=== PATIENT | male | born 1950 | race Caucasian/White ===

== ENCOUNTER 2019-06-12 08:30 | Outpatient (RCR) | payer MEDICARE, SELFPAY ==
[2019-05-27 10:34] VITALS: BP 124/78; BP 128/78; RESP 12; O2SAT 95; BMI 34.0
--- NOTE | 2019-05-27 12:52 | PR.IEVALNOTE ---
Current Diagnoses Other disorders of lung (05/27/19) Visit Care Team Role Provider Type Ganesh Mcarthur MD Primary Care Provider Physician Specialty: Internal Medicine Address: [address] [place] [address], [id number] Email: [email or web address] Josep Montejo MD Attending Provider Non-Staff Family Provider Referring Provider Specialty: Pulmonology Address: [address] [place] [address], [id number] Email: Pulmonary Rehab Initial Evaluation HI Pulmonary Rehab Inital Assessment Start: 05/27/19 10:33 Freq: Status: Active Protocol: Document 05/27/19 10:34 TWAN (Rec: 05/27/19 10:55 TWAN [id number]) HI Exercise Assessment Dx: Lung Cancer Comment Left upper lobe resection Restrictive lung disease Primary Language NIGERIAN [employer] Required No Hearing Ability Normal Visual Impairment No Limitations Visual Difficultly None Visual Assist None Musculoskeletal Symptoms Back Pain,Joint Pain Body Alignment Posture Good Posture,Relaxed Assistive Devices None Comment physical deconditioning decreased exercise tolerance Comment Patient denies any barriers and states he was walking 4+- miles /day prior to Dx and feels he will be able to exercise independently once he becomes comfortable with exercising again through participation in Pulmonary rehabilitation Comment Pt walks less than 1 mile before onset of dyspnea HI Vital Signs Pulse Oximetry (91-100 %) 95 Nasal Cannula No Respiratory Rate (12-24 breaths/min) 12 Respiratory Effort Non-Labored Respiratory Depth Normal Assessment clear to auscultation bilaterally Right Arm Blood Pressure (90/60-140/90 mmHg) 124/78 Blood Pressure Method Manual Cuff/Auscultation Left Arm Blood Pressure (90/60-140/90 mmHg) 128/78 Blood Pressure Method Manual Cuff/Auscultation HI Six Minute Walk Test Oxygen Delivery Method Room Air Respiratory Rate (breaths/min) 14 Pulse Rate (beats/min) 64 O2 Saturation by Pulse Oximetry (%) 95 Pulse Rate (beats/min) 74 Ambulation Distance (feet) 250 O2 Saturation by Pulse Oximetry (%) 96 Pulse Rate (beats/min) 82 Ambulation Distance (feet) 300 O2 Saturation by Pulse Oximetry (%) 93 Pulse Rate (beats/min) 90 Ambulatory Distance (feet) 350 O2 Saturation by Pulse Oximetry (%) 91 Pulse Rate (beats/min) 98 Ambulation Distance (feet) 250 O2 Saturation by Pulse Oximetry (%) 92 Pulse Rate (beats/min) 95 Ambulation Distance (feet) 250 O2 Saturation by Pulse Oximetry (%) 92 PUlse Rate (beats/min) 85 Ambulation Distance (feet) 260 O2 Saturation by Pulse Oximetry (%) 93 Respiratory Rate (breaths/min) 14 Pulse Rate (beats/min) 78 O2 Saturation by Pulse Oximetry (%) 97 Activity Tolerance Good Adverse Reactions Pulse Increase > 20 bpm Distance 1660 Nidia RPE Scale 11 Oriented to RPE Scale Yes Dyspnea 2 Oriented to Dyspnea Scale Yes HI Exercise Goals Exercise Goals Progression of exercise training volume will result from increases in time, intensity, and frequency. Initial emphasis will be time. Exercise Goals demonstrate proper breathing technique with pursed lip breathing. demonstrate paced breathing with ADL's, stairs, hills, etc DASI Number and Comment 8.97 Short Term increase walking distance by . 5 mile HI Pulmonary Rehab Orientation Complete Complete Yes HI Nutrition Assessment PFT Date 05/04/19 Forced Vital Capacity (FVC) 2.88 66% Forced Exp. Volume/Forced Vital Cap 76 Ratio (FEV1/FVC Ratio) Forced Expiratory Volume in 1 sec. 2.2 68% Diffusing Capacity of the Lung (DLCO) 16.1 Type Type 2 On Insulin No Glucose Monitoring No Date/Result of HgbA1C 6 Admit Height 175.26 cm Admit Weight 104.326 kg Admit Body Mass Index (BMI) 34.0 HI Education Pre-Test Score 55% Tobacco Use Former, Quit >6 Months Tobacco Product Used cigarettes Total Years Used 30 Use No Education Topics Breathing Retraining Discussed Education Requirements on Yes Intake HI Psychosocial Initial Assess HADS Score 2 HADS Score 6 Marital Status Referral Needed No
== END 2019-06-12 09:30 ==
LOC: PUL 08:30
PROVIDERS: Family Provider Internal Medicine Critical Care Medicine; PCP Internal Medicine; Referring Provider Internal Medicine Critical Care Medicine; Visit Provider Internal Medicine Critical Care Medicine
DX: J98.4 Other disorders of lung (principal)
CPT/HCPCS: G0237; G0238; G0424

== ENCOUNTER → 2019-11-28 12:51 | Outpatient (CLI) | payer MEDICARE, SELFPAY ==
[2019-05-27 10:34] VITALS: BMI 34.0
[2019-11-28 13:05] LABS: Bacteria Urine None Seen; RBC Urine None Seen (0-5/HPF); WBC Urine None Seen (0-5/HPF)
[2019-11-28 13:52] LABS: Hematocrit 42.7 % (41-53); Hemoglobin 14.6 g/dL (13.5-17.5)
[2019-11-28 13:53] LABS: BUN Creatinine Ratio 21.9 (6-22); Blood Urea Nitrogen 21 mg/dL (9-20); Calcium 9.2 mg/dL (8.4-10.2); Carbon Dioxide 24 mmol/L (22-32); Chloride 105 mmol/L (98-107); Estimated Glomerular Filt Rate > 60.0 mL/min (>60); Glucose 118 mg/dL (80-110); HEMOLYSIS < 15 (0-50); Potassium 4.4 mmol/L (3.4-5.1); Sodium 137 mmol/L (137-145)
[2019-11-28 14:28] LABS: Appearance Urine UA CLEAR; Bilirubin Urine UA NEGATIVE (NEGATIVE); Color Urine UA YELLOW; Glucose Urine UA NEGATIVE (Negative); Ketones Urine UA NEGATIVE (NEGATIVE); Leukocyte Esterase Urine UA NEGATIVE (NEGATIVE); Nitrite Urine UA NEGATIVE (Negative); Occult Blood Urine UA TRACE-LYSED (Negative); Protein Urine UA NEGATIVE (Negative); Urobilinogen Urine UA 0.2 E.U./dL (0.2)
[2019-11-28 14:31] LABS: Culture Indicated Urine Cult Not Indicated; Urine Comments Microscopic Normal
[2019-11-28 15:55] LABS: Creatinine Urine Random 53.8 mg/dL; Protein (Total) Urine Random 23 mg/dL (0-12); Protein Creatinine Ratio Urine 0.42 GRAM/24H
[2019-11-29 07:58] LABS: Parathyroid Hormone Int 32 pg/mL (15-65)
== END ==
PROVIDERS: Family Provider Internal Medicine Critical Care Medicine; PCP Family Medicine; Referring Provider Student in an Organized Health Care Education/Training Program; Visit Provider Student in an Organized Health Care Education/Training Program
DX: N05.9 Unspecified nephritic syndrome with unspecified morphologic changes (principal); D64.9 Anemia, unspecified; N25.81 Secondary hyperparathyroidism of renal origin; N30.00 Acute cystitis without hematuria; R80.9 Proteinuria, unspecified
CPT/HCPCS: 36415; 80048; 81001; 82570; 83970; 84156; 85014; 85018

== ENCOUNTER 2020-11-01 11:09 | Emergency (ER) | payer MEDICARE, SELFPAY ==
[2019-05-27 10:34] VITALS: BMI 34.0
--- NOTE | 2020-11-01 11:28 | PC.NURSE ---
Lac across fingers wrapped in the waiting room with gauze and coban to control the bleeding
[2020-11-01 11:57] VITALS: BP 145/75; PULSE 65; RESP 12; TEMP 36.2; O2SAT 98
--- NOTE | 2020-11-01 12:03 | DI.RAD.S_ITS ---
PROCEDURE: XR HAND RT MIN 3V INDICATIONS: cut 2,3 digit with brandnew knife TECHNIQUE: 3 views of the hand(s) acquired. COMPARISON: None. FINDINGS: Bones: No fractures or dislocations. Carpal bones are normally aligned. No suspicious bony lesions. Soft tissues: No suspicious soft tissue calcifications. IMPRESSION: No fracture or foreign body seen. Dictated by: Kin Ortiz M.D. on 11/01/2020 at 12:44 Approved by: Kin Ortiz M.D. on 11/01/2020 at 12:47
[2020-11-01] MEDS: LIDO 1%/SOD BICARB 8.4% (10ML) 10 ML SYRINGE INJ (15:48)
[2020-11-01] MEDS: TET,DIPH,PERTUSS(ACELL),VAC/PF 0.5 ML SYRINGE IM (15:55)
--- NOTE | 2020-11-01 19:12 | ED.WOUNDLAC ---
HPI - Wound/Laceration <STEVEN Ignacio - Last Filed: 11/01/20 19:24> General Chief Complaint: Wound/Laceration Stated Complaint: cut right hand fingers Time Seen by Provider: 11/01/20 14:03 Source: patient Mode of arrival: Ambulatory History of Present Illness HPI narrative: The patient is a 70-year-old male who presents with a chief complaint of a laceration to his right fingers. He is a former smoker, last tetanus was in 2013, and has a history of hypertension. He states that he was trying to take a sticker off of a brand new knife and accidentally cut his fingers. He cut the top of his 2nd and 3rd digits. He states that his range of motion is full. Pressure dressing has been applied. Occurred at approximately 10:30 a.m. this morning. Related Data Home Medications Medication Instructions Recorded Confirmed aspirin 81 mg tablet,delayed 81 mg PO DAILY 07/24/18 03/14/20 release (Adult Low Dose Aspirin) losartan 100 mg tablet 100 mg PO DAILY 07/24/18 03/14/20 Resmed S9 VPAP #1 ea 01/13/19 03/14/20 Allergies Allergy/AdvReac Type Severity Reaction Status Date / Time No Known Drug Allergies Allergy Unverified 11/01/20 12:02 Review of Systems <STEVEN Ignacio - Last Filed: 11/01/20 19:24> Review of Systems Narrative: GENERAL: Denies chills, fatigue, malaise, fever, sweats. HEENT: Denies sinus pain, ear pain, sore throat, difficulty swallowing, dizziness. RESPIRATORY: Denies dyspnea, cough, wheezing, hemoptysis, sputum. CARDIOVASCULAR: Denies chest pain, palpitations, orthopnea, edema, GASTROINTESTINAL: Denies nausea, vomiting, abdominal pain, diarrhea, constipation, melena. : Denies dysuria, frequency, incontinence, hematuria, urinary retention. MUSCULOSKELETAL: see HPI SKIN: see HPI NEUROLOGIC: Denies weakness, headache, numbness, change in speech, confusion, seizures, incoordination. PSYCHIATRIC: No concerning psychosocial issues. 12 point review of systems is negative except for those stated above Patient History <STEVEN Ignacio - Last Filed: 11/01/20 19:24> Medical History (Updated 11/01/20 @ 17:16 by STEVEN Ignacio) Atherosclerosis CAD (coronary artery disease) Complex sleep apnea syndrome Excessive daytime sleepiness Hyperlipidemia Hypertension MORALEZ (nonalcoholic steatohepatitis) Obesity (BMI 30-39.9) Obstructive sleep apnea Type 2 diabetes mellitus Social History Smoking Status: Former smoker Tobacco: How many years used: 30 Smoking Status: Former smoker Substance Use Type: does not use Exam <TSEVEN Ignacio - Last Filed: 11/01/20 19:24> Narrative Exam Narrative: GENERAL: This is a well-nourished, well-developed patient, Appears anxious HEAD: Atraumatic. Normocephalic. No temporal or scalp tenderness. EYES: Pupils equal round and reactive. Extraocular motions intact. No scleral icterus. No injection or drainage. ENT: Nose without bleeding, purulent drainage or septal hematoma. wearing a mask NECK: Trachea midline. No JVD or lymphadenopathy. Supple, nontender, no meningeal signs. CARDIOVASCULAR: Regular rate and rhythm RESPIRATORY: no cough. No increased respiratory effort EXTREMITIES: patient is able to flex and extend all fingers on his right hand against resistance. Very linearWell-approximated lacerations on dorsum of right 2nd and 3rd digits superior to proximal interphalangeal joints. Each laceration is approximately 2 cm. NEURO: AOx3. SKIN: see extremity exam Initial Vital Signs Initial Vital Signs: Vital Signs Temperature 97.2 F L 11/01/20 11:57 Pulse Rate 65 11/01/20 11:57 Respiratory Rate 12 11/01/20 11:57 Blood Pressure 145/75 H 11/01/20 11:57 Pulse Oximetry 98 11/01/20 11:57 <Lucia Jeffries DO - Last Filed: 11/02/20 08:03> Initial Vital Signs Initial Vital Signs: Vital Signs Temperature 97.2 F L 11/01/20 11:57 Pulse Rate 65 11/01/20 11:57 Respiratory Rate 12 11/01/20 11:57 Blood Pressure 145/75 H 11/01/20 11:57 Pulse Oximetry 98 11/01/20 11:57 Procedures <STEVEN Ignacio - Last Filed: 11/01/20 19:24> Laceration Repair Laceration 1: Site: hand ( Right 2nd digit dorsum) Side (If applicable): right Size (cm): 2 Description: linear and clean Depth: simple, single layer Pre-repair: wound explored, irrigated extensively and deep structures intact Skin layer closed with: nylon Size (cm): 5-0 Number of sutures: 3 Technique: simple, interrupted Laceration 2: Site: hand ( dorsum right 3rd finger) Size (cm): 2 Description: linear and clean Depth: simple, single layer Pre-repair: wound explored, irrigated extensively and deep structures intact Skin layer closed with: nylon Size (cm): 5-0 Number of sutures: 3 Technique: simple, interrupted Nerve Block Nerve Block 1: Local Anesthetic: lidocaine 1% and with bicarb Amount of anesthesia used (mL): 4 Side: right Nerve Blocks: digital (2nd digit ) Procedure Successful: Yes Patient Tolerated Procedure: Well Complications: none Nerve Block 2: Local Anesthetic: lidocaine 1% and with bicarb Amount of anesthesia used (mL): 4 Side: right (3rd digit ) Nerve Blocks: digital Procedure Successful: Yes Patient Tolerated Procedure: Well Complications: none Course <ENEIDA IgnacioBC - Last Filed: 11/01/20 19:24> Orders Ordered: Discontinued Medications Bacitracin (Bacitracin Oint 0.9 Gm Pckt) 1 applic TOP NOW ONE Stop: 11/01/20 16:55 Diphtheria/Tetanus/Acell Pertussis (Tet,Diph,Pertuss(Acell),Vac/Pf 0.5 Ml Syringe) 0.5 ml IM .ONCE ONE Stop: 11/01/20 16:01 Last Admin: 11/01/20 15:55 Dose: 0.5 ml Documented by: GRACIELA Lidocaine/Sodium Bicarbonate (Lido 1%/Sod Bicarb 8.4% (10ml) 10 Ml Syringe) 10 ml INJ NOW ONE Stop: 11/01/20 15:20 Last Admin: 11/01/20 15:48 Dose: 10 ml Documented by: GRACIELA Vital Signs Vital signs: Vital Signs - 8 hr 11/01/20 11:57 Temperature 97.2 F L Pulse Rate 65 Respiratory Rate 12 Blood Pressure 145/75 H Pulse Oximetry 98 <Lucia Jeffries DO - Last Filed: 11/02/20 08:03> Orders Ordered: Discontinued Medications Bacitracin (Bacitracin Oint 0.9 Gm Pckt) 1 applic TOP NOW ONE Stop: 11/01/20 16:55 Diphtheria/Tetanus/Acell Pertussis (Tet,Diph,Pertuss(Acell),Vac/Pf 0.5 Ml Syringe) 0.5 ml IM .ONCE ONE Stop: 11/01/20 16:01 Last Admin: 11/01/20 15:55 Dose: 0.5 ml Documented by: GRACIELA Lidocaine/Sodium Bicarbonate (Lido 1%/Sod Bicarb 8.4% (10ml) 10 Ml Syringe) 10 ml INJ NOW ONE Stop: 11/01/20 15:20 Last Admin: 11/01/20 15:48 Dose: 10 ml Documented by: GRACIELA Vital Signs Vital signs: Vital Signs - 8 hr 11/01/20 11:57 Temperature 97.2 F L Pulse Rate 65 Respiratory Rate 12 Blood Pressure 145/75 H Pulse Oximetry 98 MDM - Wound/Laceration <ENEIDA Ignacio - Last Filed: 11/01/20 19:24> Imaging Data Chest x-ray: Radiologist's Impression: [address] [place] [id number] ReportSigned Patient: Cam Johnson MMR#: [id number]: 2Acct:[id number]/Sex: 70 / MDate of Service: 11/01/20Loc: EDAccession Number: [id number] Procedure: XR hand RT min 3V Ordering Provider: Lucia Jeffries D.O. PROCEDURE: XR HAND RT MIN 3V INDICATIONS: cut 2,3 digit with brandnew knife TECHNIQUE: 3 views of the hand(s) acquired. COMPARISON: None. FINDINGS: Bones: No fractures or dislocations. Carpal bones are normally aligned. No suspicious bony lesions. Soft tissues: No suspicious soft tissue calcifications. IMPRESSION: No fracture or foreign body seen. Dictated by: Kin Ortiz M.D. on 11/01/2020 at 12:44 Approved by: Kin Ortiz M.D. on 11/01/2020 at 12:47 [facility] Narrative Medical decision making narrative: the patient is a 70-year-old male who presents with a chief complaint of laceration. His tetanus was updated. His lacerations were closed as per procedural note. He tolerated well. He has reassuring range of motion. I discussed at length suture removal, keeping it clean and dry. His asked for pain medication, I offered NSAIDs which he declined. Discussed at length come back to the ER for acute concerns. Patient has no questions or concerns upon discharge states understanding of return precautions as well Discharge Plan Departure Patient Disposition: Home Clinical Impression: Laceration Instructions: How to Care for a Laceration After Repair, DI for Laceration Repair Activity Restrictions/Additional Instructions: Thank you for trusting us with your care today As I discussed, your x-ray shows no acute fracture. This does not rule out a soft tissue injury such as a ligament or tendon injury. It is important that you follow up with primary care provider, especially if worsening or no improvement. There can be fractures that did not show up on initial x-ray. please keep your wound clean and dry. Please monitor for signs and symptoms of infection This includes extending redness purulent drainage etcetera please come back to the emergency department for any acute concerns please follow-up in 7-10 days for suture removal. Prescriptions: No Action aspirin [Adult Low Dose Aspirin] 81 mg tablet,delayed release (DR/EC) 81 mg PO DAILY RF: 0 losartan 100 mg tablet 100 mg PO DAILY RF: 0 (DME) Resmed S9 VPAP Qty: 1 RF: 0 Referrals: Larry Ospina MD [Primary Care Provider] - <Lucia Jeffries DO - Last Filed: 11/02/20 08:03> Cosign ED Attending Ramirezature Attestation: I was immediately available in the department for consultation. Documentation has been reviewed.
== END 2020-11-01 17:43 | disposition home or self-care (01) ==
PROVIDERS: Emergency Provider Nurse Practitioner Family; Family Provider Internal Medicine Critical Care Medicine; PCP Family Medicine
DX: S61.210A Laceration without foreign body of right index finger without damage to nail, initial encounter (principal); S61.212A Laceration without foreign body of right middle finger without damage to nail, initial encounter; W26.0XXA Contact with knife, initial encounter; Z23 Encounter for immunization
CPT/HCPCS: 12002; 64450; 73130; 99283; 90715